=== PATIENT | female | born 1985 | race Caucasian/White ===

== ENCOUNTER 2020-04-13 18:28 | Emergency (ER) | payer BC, SELFPAY ==
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
[2020-04-13 18:40] VITALS: BP 143/88; PULSE 95; RESP 18; TEMP 37.1; O2SAT 98
== END 2020-04-13 19:20 | disposition home or self-care (01) ==
PROVIDERS: Emergency Provider Nurse Practitioner; PCP Internal Medicine
DX: T23.171A Burn of first degree of right wrist, initial encounter (principal); X10.2XXA Contact with fats and cooking oils, initial encounter
CPT/HCPCS: 99213; G0463

== ENCOUNTER 2020-04-23 11:07 | Emergency (ER) | payer BC, SELFPAY ==
[2020-04-23 11:14] VITALS: BP 133/80; PULSE 134; RESP 20; TEMP 37.6; O2SAT 99
--- NOTE | 2020-04-23 11:25 | ED.URI ---
HPI - URI/Sore Throat General Chief Complaint: Upper Respiratory Infection Stated Complaint: sore throat Time Seen by Provider: 04/23/20 11:25 Source: patient and RN notes reviewed History of Present Illness HPI Narrative: Patient is a 34-year-old female who presents the urgent care with complaints of a red, swollen sore throat. Patient states that it started yesterday and she woke up this morning with increased pain. Patient denies any use of [id number] medication for her symptoms. States that she thought it was just related to swimming yesterday and may be drinking chlorine . No other acute complaints. Denies any other upper respiratory complaints. Denies of any cough. Patient aware of the plan of care. Related Data Home Medications Medication Instructions Recorded Confirmed sumatriptan succinate 100 mg PO USEASDIRECTD PRN 04/13/20 04/23/20 Allergies Allergy/AdvReac Type Severity Reaction Status Date / Time aspirin Allergy Mild Rash Verified 04/23/20 11:16 bee venom protein (honey bee) Allergy Mild Anaphylactic Verified 04/23/20 11:16 [bees] Shock Penicillins Allergy Mild Rash Verified 04/23/20 11:16 Review of Systems Review of Systems: Narrative: CONSTITUTIONAL: Reports of low-grade fever EYES: Denies visual changes, redness, or discharge. ENT: Reports of sore throat, redness and swelling CARDIOVASCULAR: Denies chest pain, palpitations, or edema. RESPIRATORY: Denies cough or dyspnea. GASTROINTESTINAL: Denies abdominal pain, nausea, vomiting, or diarrhea. GENITOURINARY: Denies dysuria or hematuria. SKIN: Denies rash or itching. MUSCULOSKELETAL: Denies back pain, joint pain, or myalgia. NEUROLOGIC: Denies headache, numbness, or weakness. All other systems reviewed are negative, except as documented in HPI. PMFSH Comments At the time of my signature, I reviewed and agree with the nursing past medical, surgical, social, and family history. There is no relevant family history pertinent to the patient complaint. Exam Narrative: Exam Narrative: GENERAL: This is a well-nourished, well-developed patient, in no apparent distress. HEAD: normocephalic, atraumatic. EYES: PERRL. Sclera clear/white. Vision is grossly intact. EARS: External ears normal, auditory canals clear and without drainage, TMs normal without perforation. Hearing grossly intact. NOSE: External nose normal with no obvious nasal discharge, nares without redness, no rhinorrhea. THROAT: Mucous membranes moist, moderate erythema noted posterior oropharynx with moderate postnasal drainage and mild bilateral tonsillar edema without exudate NECK: Neck supple, mild nontender bilateral submandibular lymphadenopathy RESPIRATORY: Clear to auscultation. Breath sounds equal bilaterally. No wheezes, rales, or rhonchi. SKIN: warm, intact with no suspicious lesions or rash, good texture and turgor. NEURO: awake, alert, and oriented to person, place and time. There were no obvious focal neurologic abnormalities. EXTREMITIES: No clubbing, cyanosis, or edema. Course Vital Signs Vital signs: Vital Signs Temperature 99.7 F H 04/23/20 11:14 Pulse Rate 134 H 04/23/20 11:14 Respiratory Rate 04/23/20 11:14 Blood Pressure 133/80 04/23/20 11:14 Pulse Oximetry 99 04/23/20 11:14 Temperature 99.7 F H 04/23/20 11:14 Pulse Rate 134 H 04/23/20 11:14 Respiratory Rate 04/23/20 11:14 Blood Pressure 133/80 04/23/20 11:14 Pulse Oximetry 99 04/23/20 11:14 Reviewed MDM - URI/Sore Throat MDM Narrative Medical decision making narrative: Reviewed lab results with the patient. She is aware that strep swab was negative. We will culture the swab and you may call within 72 hours to check on the culture results. We do not call for negatives and considering you will be treated for tonsillitis, which will cover strep, we typically will not call for the positive either. Complete steroid regimen for swelling as prescribed. May use Benadryl in additi
== END 2020-04-23 11:42 | disposition home or self-care (01) ==
PROVIDERS: Emergency Provider Nurse Practitioner Family; PCP Internal Medicine
DX: J03.80 Acute tonsillitis due to other specified organisms (principal); B96.89 Other specified bacterial agents as the cause of diseases classified elsewhere
CPT/HCPCS: 87081; 87880; 99213; G0463

== ENCOUNTER 2020-12-12 10:54 | Emergency (ER) | payer OTHER, SELFPAY ==
[2020-12-12 11:10] VITALS: BP 150/98; PULSE 108; RESP 20; TEMP 36.6; O2SAT 97
--- NOTE | 2020-12-12 11:25 | ED.EXTPRO ---
HPI - Extremity Problem General Stated complaint: R lower leg pain for 3 days Source: patient Mode of arrival: ambulatory Limitations: no limitations History of Present Illness HPI Narrative: IS THAT SINCE 34-YEAR-OLD FEMALE PRESENTS WITH LEFT KNEE PAIN patient is postop day 5 for meniscal tear surgery and has been over exerting her right leg causing pain and tenderness in her knee with a cramping sensation. There is no calf pain there is no calf swelling no redness no erythema no shortness of breath no fever chills. The patient was given Vicodin for postop pain which she took just 2 pills and has not taken any further for her pain. Complaint: extremity pain Onset (ago): day(s) Pain Consistency: intermittent Location: right Severity scale (1-10): 6 Quality: aching Radiation: none Relieving factors: immobilization and elevation Exacerbating factors: weight bearing, walking and exertion Associated symptoms: denies other symptoms Related Data Home Medications Medication Instructions Recorded Confirmed sumatriptan succinate 100 mg PO USEASDIRECTD PRN 04/13/20 12/12/20 hydrocodone-acetaminophen 1 tablet PO DIRECTED 12/12/20 12/12/20 Allergies Allergy/AdvReac Type Severity Reaction Status Date / Time aspirin Allergy Mild Rash Verified 04/23/20 11:16 bee venom protein (honey bee) Allergy Mild Anaphylactic Verified 04/23/20 11:16 [bees] Shock Penicillins Allergy Mild Rash Verified 04/23/20 11:16 Review of Systems Review of Systems: All systems reviewed & are unremarkable except as noted in HPI and below PMFSH Past Medical History Medical History Knee pain Exam Const: General: no acute distress Orientation/consciousness: patient oriented x3 HENMT: Head: normal to inspection Eyes: Conjunctivae: conjunctivae normal Pupils: Equal, round and reactive pupils present Neck: Neck: normal visual inspection and no lymphadenopathy Chest: Chest palpation & inspection: normal inspection of the chest Resp: Effort & Inspection: normal respiratory effort Auscultation: clear to auscultation bilaterally Cardio: Rate: regular rate Rhythm: regular rhythm GI: GI Palp: Yes Soft to palpation Percussion: Yes normal to percussion : General: Yes no CVA tenderness Skin: General skin exam: normal color Rashes: no rashes Neuro: General: patient oriented x3 and moves all extremities Extrem: Other: status post surgery for meniscal tear knee is swollen and tender, there is no calf pain elicited with palpation no calf swelling no redness or erythema Psych: Mental Status: mental status grossly normal Course Course Emergency Course: advised patient to take her medicine as prescribed follow-up with her surgeon, I gave her a dose of IM Toradol and advised to take Motrin for pain and inflammation and continue her Vicodin as needed. Critical Care Time Critical Care Time Critical Care Time: No Discharge Plan Discharge Clinical Impression: Knee pain Qualifiers: Chronicity: acute Laterality: right Qualified Code(s): M25.561 - Pain in right knee Patient Disposition: Home, Self-Care Condition: Stable Instructions: Antibiotic Form, Knee Pain (ED), Knee Sprain (ED) Additional Instructions: Take Motrin [id number] twice daily with meals, use Vicodin as needed and follow-up primary care physician as soon as possible for further evaluation and treatment. Prescriptions: No Action hydrocodone-acetaminophen 5-325 mg tablet 1 tablet PO DIRECTED RF: 0 sumatriptan succinate 100 mg tablet 100 mg PO USEASDIRECTD PRN (Reason: headache) RF: 0 Follow-up/Referrals: [place],MD Gilmer [Primary Care Provider] - Time of Disposition: 11:31
[2020-12-12] MEDS: KETOROLAC (*BKC) 60 MG/2 ML VIAL IM (11:33)
[2020-12-12 11:34] VITALS: BP 133/86; PULSE 94; RESP 20; TEMP 37.1; O2SAT 97
== END 2020-12-12 11:39 | disposition home or self-care (01) ==
PROVIDERS: Emergency Provider Emergency Medicine; PCP Internal Medicine
DX: M25.561 Pain in right knee (principal)
CPT/HCPCS: 96372; 99283; J1885

== ENCOUNTER 2022-04-24 14:00 | Emergency (ER) | payer OTHER, SELFPAY ==
--- NOTE | ~2022-04-24 | US_ITS ---
EXAMINATION: US OB <=14 wk fetus w TV INDICATION: 11 weeks , bleeding TECHNIQUE: Sonography of the pelvis was performed by transabdominal and transvaginal techniques. COMPARISON: None. RESULT: Uterus: - Orientation: Anteverted Gestation: - Intrauterine gestational sac: Single irregular gestational sac in the lower uterine segment/ cervix. - Embryo: Single present - [employer] rump length: 3.6 cm, corresponding gestational age 10 weeks, 4 days -Gestational heart rate: absent -Subgestational hematoma: Absent Right ovary: - Size : 2.9 x 1.1 x 1.0 cm - Normal sonographic appearance with physiologic follicles. Left ovary: -Not visualized. Pelvis free fluid: None. IMPRESSION: Failed . The irregular gestational sac is positioned in the lower uterine segment/cervical c anal. Reviewed, dictated and finalized at location K. IMPRESSION: Failed . The irregular gestational sac is positioned in the lower uter ine segment/cervical canal.
[2022-04-24 14:14] VITALS: BP 126/84; PULSE 81; RESP 16; TEMP 36.3; O2SAT 100
[2022-04-24] MEDS: MORPHINE SULFATE (*CRX) 2 MG/ML INJ IV PUSH ×2 (14:56→17:11)
[2022-04-24 14:57] VITALS: BP 143/89; PULSE 84; RESP 16; O2SAT 97
--- NOTE | 2022-04-24 14:57 | ED.ABDPAIN ---
HPI - Abdominal Pain General Chief Complaint: Abdominal Pain Stated Complaint: 11weeks , cramping, bleeding x4 days Time Seen by Provider: 04/24/22 14:19 Source: patient Mode of arrival: ambulatory Limitations: no limitations History of Present Illness HPI narrative: This is a 36 year old , about 11 weeks , that presents to the ER for pelvic pain noted over the last couple of days. Associated with vaginal bleeding. Reports the pain is crampy in nature. Reports she has been seen at another ED for this and does have an IUP. She has not had her first OB appointment yet. She is scheduled to see Dr. Ho in 10 days. Denies fever, vomiting, or dysuria. Related Data Home Medications Medication Instructions Recorded Confirmed sumatriptan succinate 100 mg tablet 100 mg PO USEASDIRECTD PRN headache 04/13/20 12/12/20 hydrocodone 5 mg-acetaminophen 325 1 tablet PO DIRECTED 12/12/20 12/12/20 mg tablet Allergies Allergy/AdvReac Type Severity Reaction Status Date / Time aspirin Allergy Mild Rash Verified 04/23/20 11:16 bee venom protein (honey bee) Allergy Mild Anaphylactic Verified 04/23/20 11:16 [bees] Shock Penicillins Allergy Mild Rash Verified 04/23/20 11:16 Review of Systems Review of Systems: CONSTITUTIONAL: Denies fever GASTROINTESTINAL: Reports abdominal pain. Denies nausea, vomiting, or diarrhea. GENITOURINARY: Denies dysuria All systems reviewed & are unremarkable except as noted in HPI and below PMFSH Past Medical History Medical History (Updated 04/24/22 @ 17:48 by Zulema Armando PA-C) History of migraine Knee pain Social History Social History (Updated 04/24/22 @ 15:12 by Zulema Armando PA-C) Substance use: never Exam Narrative: GENERAL: Well-appearing, well-nourished, and in mild acute distress due to pain. HEAD: Normocephalic, atraumatic. EYES: EOMI. CHEST: Clear to auscultation. No respiratory distress. No wheezes rales or rhonchi HEART: Regular rate and rhythm. No murmur heard. Normal peripheral pulses. ABDOMEN: Soft, nondistended, normal active bowel sounds. Tender to palpation throughout the lower abdomen, without guarding. No CVA tenderness EXTREMITIES: Normal range of motion. No edema. SKIN: Warm, dry, no rash. NEURO: No focal deficits. Alert and oriented x3. PSYCH: Normal mood and affect Procedures Other Procedure Procedure 1: Other Procedure: Products of conception removed from the vaginal vault using ring forceps. Sent for pathology Course Vital Signs Vital signs: Vital Signs Temperature 97.3 F L 04/24/22 14:14 Pulse Rate 81 04/24/22 14:14 Respiratory Rate 16 04/24/22 14:14 Blood Pressure 126/84 04/24/22 14:14 Pulse Oximetry 100 04/24/22 14:14 Oxygen Delivery Room Air 04/24/22 14:14 Temperature 97.3 F L 04/24/22 14:14 Pulse Rate 84 04/24/22 14:57 Respiratory Rate 16 04/24/22 14:57 Blood Pressure 143/89 H 04/24/22 14:57 Pulse Oximetry 97 04/24/22 14:57 Oxygen Delivery Room Air 04/24/22 14:14 MDM - Abdominal Pain MDM Narrative Medical decision making narrative: Patient presents to the emergency department for vaginal bleeding, about 11 weeks . She is afebrile and nontoxic-appearing. Her vitals are stable. CBC with mild leukocytosis to 14.8. Hemoglobin is normal. Metabolic panel without concerning findings. Lactic acid initially elevated, this normalized with IV fluid administration. Patient is a be positive. Obstetrics ultrasound shows a failed . There are irregular gestational sac is positioned in the lower uterine segment/cervical canal. Patient was updated on case findings. Products of conception removed from the vaginal vault using ring forceps. Sent for pathology. Spoke with Dr. Robles about patient and workup, OB environmental officer. Patient is stable and felt appropriate for further outpatient evaluation. She does report she has an appointment with [facility]'s center in
[2022-04-24 15:24] LABS: Basophils Percent Auto 0.1 % (0.2-1.2); Eosinophils Percent Auto 0.1 % (0-4.4); Hematocrit 38.5 % (37.0-47.0); Hemoglobin 12.9 g/dL (12.0-15.0); Immature Granulocyte Absolute 0.06 K/mm3 (0.00-0.031); Immature Granulocyte Percent A 0.4 % (0-0.5); Lymphocytes Absolute Auto 1.93 K/mm3 (0.9-3.2); Mean Corpuscular HGB Conc 33.5 g/dl (32-36); Mean Corpuscular Hemoglobin 28.4 pg (26-34); Mean Corpuscular Volume 84.8 fl (80-100); Mean Platelet Volume 11.5 fl (7.4-10.4); Monocytes Absolute Auto 0.7 K/mm3 (0.1-0.6); Monocytes Percent Auto 4.5 % (2.6-8.5); Neutrophils Absolute Auto 12.1 K/mm3 (1.3-6.7); Neutrophils Percent Auto 81.9 % (45.5-73.1); Platelet Count Result 196 k/mm3 (150-375); Red Blood Count 4.54 M/mm3 (4.2-5.4); Red Cell Distribution Width 13.2 % (11.5-14.5); White Blood Count 14.8 K/mm3 (4.5-10.0)
[2022-04-24 15:35] LABS: Alanine Aminotransferase 28 U/L (6-35); Albumin Level 4.4 g/dL (3.5-5.1); Alkaline Phosphatase 84 U/L (38-126); Anion Gap 11 mmol/L (8-16); Aspartate Amino Transferase 24 U/L (14-36); Bilirubin,Total 0.4 mg/dL (0.2-1.3); Blood Urea Nitrogen 14 mg/dL (7-17); Calcium 9.6 mg/dL (8.4-10.2); Carbon Dioxide 17 mmol/L (22-30); Chloride 110 mmol/L (98-107); Estimated CRCL calculation 127 ml/min; Estimated Glomerular Filt Rate > 60; Glucose 98 mg/dL (65-110); Lactic Acid Reflex 2.2 mmol/L (0.7-2.0); Potassium 3.5 mmol/L (3.4-5.0); Sodium 138 mmol/L (137-145)
[2022-04-24 16:40] VITALS: BP 142/86; PULSE 90; RESP 16; O2SAT 97
[2022-04-24] MEDS: SODIUM CHLORIDE 0.9% IV 1,000 ML 999 ML IV CONT (17:11)
[2022-04-24 18:01] LABS: Lactic Acid Reflex 0.7 mmol/L (0.7-2.0)
[2022-04-24 18:05] LABS: Appearance Urine Clear (Clear); Bilirubin Urine 1+ (Negative); Blood Urine 3+ (Negative); Color Urine Yellow (Yellow); Glucose Urine UA Negative (Negative); Ketones Urine 4+ mg/dL (Negative); Leukocyte Esterase Ur Negative LEU/UL (Negative); Nitrate Urine Negative (Negative); Protein Urine Trace mg/dL (Negative)
[2022-04-24 18:09] LABS: Mucus Urine Few /lpf; Squamous Epithelial Cell Urine Few /hpf (Few)
[2022-04-24 18:12] LABS: Add Urine Microscopic? YES
[2022-04-24 18:22] LABS: Reflex Lactic Acid Yes or No Add Lactic
[2022-04-24 18:48] VITALS: BP 134/84; PULSE 86; RESP 16; O2SAT 98
== END 2022-04-24 18:49 | disposition home or self-care (01) ==
PROVIDERS: Physician Assistant; Emergency Provider Emergency Medicine; PCP Internal Medicine
DX: O02.1 Missed abortion (principal)
CPT/HCPCS: 36415; 76801; 76817; 80053; 81001; 83605; 84702; 85025; 85461; 88305; 96374; 96376; 99284; J2270; J7030

== ENCOUNTER 2024-02-19 07:45 | Outpatient (CLI) | payer OTHER, SELFPAY | END 2024-02-19 07:46 | disposition home or self-care (01) | LOC: ANHSURGERY 07:49 | PROVIDERS: PCP Internal Medicine; Visit Provider Obstetrics & Gynecology | DX: Z01.818 Encounter for other preprocedural examination (principal); N93.9 Abnormal uterine and vaginal bleeding, unspecified | CPT/HCPCS: 36415; 86850; 86900; 86901 ==

== ENCOUNTER 2024-02-20 01:24 | Day surgery (SDC) | payer OTHER, SELFPAY ==
[2024-02-08 14:23] VITALS: BMI 31.7
--- NOTE | 2024-02-08 14:29 | PC.NURSE ---
Report to the Outpatient Waiting Room, entrance under the green pavilion located off [facility], at time 6:00 on date 02/20/24. Planned Procedure Time: 7:30. Time changes happen often and if your time is changed the preop area will call you the afternoon before. - You and your visitor will be asked to self-screen and do not enter if you have any COVID symptoms. - A mask is optional within the hospital at this time. Patients may have clear liquids (water, carbonated beverages, clear teas, apple juice) until 3 hours prior to surgery (4:30) with a maximum of 20 ounces. - No food from midnight until time of surgery Take the following medications with a SIP of water the morning of surgery: NONE DO NOT STOP ANY OF YOUR OTHER PRESCRIPTION MEDICATIONS PRIOR TO SURGERY ?EXCEPT THE FOLLOWING Medications to discontinue per physician: N/A Date to take last dose: N/A Please no make-up, nail sinhala, hairspray, perfume, deodorant, or body powder the day of surgery. No jewelry (including any body piercings) or valuables the day of surgery, leave them at home. Please take a shower or bath the night before, or the morning of, surgery with an antibacterial soap. Wear comfortable, loose fitting clothing. - Jewelry must be removed prior to entering the operating room. Rings and piercings that are not removed may be cut off. - The hospital will not accept responsibility for valuables. - Please leave all valuables, including medications, at home the day of surgery. If you are going home after surgery, a licensed cement mixer driver must drive you home. - NO public transportation without another adult if you receive anesthesia. - We recommend that an adult stay with you for 24 hours following discharge. - We also recommend that you do not drive, make important decision, drink alcoholic beverages, or take any drugs that were not prescribed by your health care provider for at least 24 hours after your discharge time. Follow any additional instructions given to you from your surgeon. If you or anyone in your household have experienced Covid symptoms in the past week, please notify your surgeon or the nurse liaison at the phone number below for possible testing. Telephone instructions given to PT Karan OSULLIVAN and asked if any additional questions and then verbalized understanding. Patient advised to call surgeon office or pre surgery nurse liaison [phone] if any additional questions.
[2024-02-20] VITALS (9 sets, daily range): BP systolic 105–146; BP diastolic 63–98; PULSE 65–80; RESP 14–18; TEMP 36.1–37.5; O2SAT 94–100
[2024-02-20] MEDS: ACETAMINOPHEN 500 MG TABLET 1000 MG PO (06:17)
[2024-02-20] MEDS: LACTATED RINGERS 1,000 ML 30 ML IV CONT ×2 (06:51→09:12)
--- NOTE | 2024-02-20 07:06 | P.PNAN_ITS ---
Anes - Initial Pre Proc Eval Procedure: Operation Date: 02/20/24 07:30 Proposed Procedures p Total Laparoscopic Hysterectomy with Bilateral Salpingectomy - Juan David Pichardo MD Date/Time: 02/20/24 07:06 Surgeon: Juan David Pichardo MD Pre Op Diagnosis: Abnormal Uterine Bleeding Patient Data Age: 38 Gender: F Height: 1.75 m Weight: 95.4 kg Last Vital Signs Temp 97.9 F 02/20/24 06:26 Pulse 80 02/20/24 06:26 Resp 16 02/20/24 06:26 BP 146/98 H 02/20/24 06:26 Pulse Ox 99 02/20/24 06:26 O2 Del Method Room Air 02/20/24 06:26 Allergies Allergy/AdvReac Type Severity Reaction Status Date / Time aspirin Allergy Mild Rash Verified 02/20/24 06:10 bee venom protein (honey bee) Allergy Mild Anaphylactic Verified 02/20/24 06:10 [bees] Shock Penicillins Allergy Mild Rash Verified 02/20/24 06:10 Home Medications Medication Instructions Recorded Confirmed Type sumatriptan succinate 100 mg tablet 100 mg PO USEASDIRECTD PRN headache 04/13/20 02/08/24 History Patient hx anesthesia problems: none Family hx anesthesia problems: none Results Review: All pre-operative results and documents have been reviewed as part of the pre- operative evaluation. [facility] Past Medical History Medical History (Updated 04/25/22 @ 00:00 by Portillo Golden) History of migraine Knee pain Social History Social History (Updated 04/24/22 @ 15:12 by Zulema Armando PA-C) Smoking packs per day: 0.5 Smoking cigarettes per day: 10.0 Years smoked: 20 Smoking pack-years: 10.00 Smoking status: Current every day smoker Tobacco type: cigarettes Alcohol intake: never Substance use: never Substance use type: does not use Living arrangements: alone Spiritual care concerns: No Anes - Eval Final PreProcedure Day of Procedure 02/20/24 07:06 Patient weight: obese Heart: regular rate and rhythm Lungs: clear to auscultation Airway: Mallampati scale class II Neurological: alert and oriented Last oral intake: >/= 8 hours ASA classification: III Emergent: no Anesthetic plan: proceed Anesthesia type and monitoring: general ETT and standard monitoring Results Review: All pre-operative results and documents have been reviewed as part of the pre- operative evaluation. Informed Consent: The patient's anesthetic plan and its attendant risks and benefits were discussed with the patient/family/POA. Questions were solicited and answers provided to the satisfaction of the patient/family/POA.
--- NOTE | 2024-02-20 07:17 | PM.IMHP ---
H&P: HPI History of Present Illness Date/Time: 02/20/24 07:17 Chief Complaint: Abnormal uterine bleeding Narrative: 38-year-old female abnormal uterine bleeding who presents for total laparoscopic hysterectomy bilateral salpingectomy. She understands the procedure. Has been explained to her in detail. She understands risks. She understands injuries may occur that result in hospitalization, more surgery, and severe illness she understands risk of hemorrhage infection. She denies any nausea, vomiting, fever, chills. She denies any chest pain shortness of breath. Review of Systems Review of Systems: All systems reviewed & are unremarkable except as noted in HPI and below Constitutional: Constitutional: Denies chills, Denies fatigue, Denies fever(s) and Denies weakness Eyes: Eyes: Denies blurry vision, Denies change in vision, Denies loss of peripheral vision, Denies loss of vision, Denies other visual disturbances and Denies eye pain ENT: Denies vertigo, Denies dizziness, Denies hearing loss, Denies mouth pain, Denies nasal obstruction, Denies neck mass and Denies neck pain Cardiovascular: Cardiovascular: Denies chest pain, Denies diaphoresis, Denies syncope, Denies leg edema and Denies dyspnea Respiratory: Respiratory: Denies chest congestion, Denies cough, Denies hemoptysis, Denies dyspnea and Denies wheezing Gastrointestinal: Gastrointestinal: Denies abdominal pain, Denies constipation, Denies diarrhea, Denies nausea and Denies vomiting Genitourinary: Genitourinary: Denies hematuria, Denies change in libido, Denies nocturia, Denies genital lesions, Denies flank pain and Denies urinary urgency Musculoskeletal: Musculoskeletal: Denies abnormal gait, Denies back pain, Denies myalgias, Denies arthralgias, Denies joint swelling, Denies muscle weakness and Denies neck pain Integumentary/Breasts: Skin/Breast: Denies swelling, Denies breast pain, Denies breast mass, Denies dry skin, Denies nipple discharge, Denies unusual bruising and Denies jaundice Neurologic: Denies Neuro-related abnormal movements, Denies Abnormal speech present, Denies abnormal gait, Denies behavioral changes, Denies confusion, Denies vertigo, Denies dizziness, Denies syncope, Denies loss of vision, Denies memory loss, Denies convulsions and Denies weakness Psychiatric: Psychiatric: Denies abnormal sleep pattern, Denies behavioral changes, Denies change in libido, Denies confusion, Denies depression, Denies anhedonia and Denies memory loss Endocrine: Endocrine: Reports no additional endocrine complaints, Denies change in libido and Denies fatigue Hematologic/Lymphatic: Hematologic/Lymphatic: Reports no additional hematologic/lymphatic complaints Allergic/Immunologic: Allergic/Immunologic: Reports no additional allergic/immunologic complaints and Denies wheezing PMFSH Past Medical History Medical History (Updated 02/20/24 @ 07:20 by Juan David Pichardo MD) History of migraine Knee pain Social History Social History (Updated 04/24/22 @ 15:12 by Zulema Armando PA-C) Smoking packs per day: 0.5 Smoking cigarettes per day: 10.0 Years smoked: 20 Smoking pack-years: 10.00 Smoking status: Current every day smoker Tobacco type: cigarettes Alcohol intake: never Substance use: never Substance use type: does not use Living arrangements: alone Spiritual care concerns: No Meds Home Medications and Allergies Home Medications Medication Instructions Recorded Confirmed Type sumatriptan succinate 100 mg tablet 100 mg PO USEASDIRECTD PRN headache 04/13/20 02/08/24 History Allergies Allergy/AdvReac Type Severity Reaction Status Date / Time aspirin Allergy Mild Rash Verified 02/20/24 06:10 bee venom protein (honey bee) Allergy Mild Anaphylactic Verified 02/20/24 06:10 [bees] Shock Penicillins Allergy Mild Rash Verified 02/20/24 06:10 Vital Signs Vital Signs - 24 hr 02/20/24 06:26 Temperature 97.9 F Pulse Rate 80 Respirato
--- NOTE | 2024-02-20 07:20 | WPDHPUPDATE1 ---
History and Physical Update Update Date/Time: 02/20/24 07:20 History and Physical has been reviewed, including an updated exam of the patient. There are NO changes in the patient's condition. Risks, benefits, and alternatives have been discussed and questions answered. Patient agrees to proceed with procedure.
[2024-02-20] MEDS: ceFAZolin 2 GM/D5W 50 ML 2 GM/50 ML BAG IVPB (07:37)
[2024-02-20] MEDS: ceFAZolin SODIUM 1 GM VIAL (09:01)
[2024-02-20] MEDS: METHYLENE BLUE 0.5% INJ 10 ML AMPULE 20 ML IRRIGATION (09:02)
--- NOTE | 2024-02-20 09:10 | W.PM.PROC2 ---
Procedure Note - Detailed Date of Procedure 02/20/24 Pre-op Diagnosis Abnormal Uterine Bleeding Post-op Diagnosis Same Procedure Performed Total laparoscopic hysterectomy. Surgeon Juan David Pichardo MD Anesthesia General Description of Procedure This patient was taken to the operating room. She was prepped and draped in the dorsal lithotomy position after induction of general anesthesia. The uterine manipulator and Carlos cup were placed. This was done with a speculum and tenaculum. The speculum was placed. The cervix was grasped with a tenaculum. The stay sutures were placed at 3 and 9:00 a.m.. The stay sutures of 0 Vicryl were brought through the appropriately sized Carlos cup. The tip of the GRABIEL manipulator was placed in the intrauterine cavity. The cup was slid into place around the cervix and into the fornices. It was locked into place. The sutures were then wrapped around the handle and tied under tension. A 5 mm skin incision was made in the left upper quadrant the abdomen. A 5 mm trocar was inserted into the intrauterine cavity under direct visualization of the scope. Pneumoperitoneum was achieved. A left lower quadrant 11 mm incision was made with scalpel. An 11 mm trocar was inserted into the anterior abdominal cavity under direct visualization the scope. A 5 mm infraumbilical incision was made with a scalpel and a 5 mm trocar was inserted the intra-abdominal cavity under direct visualization of the scope. Bilateral ureteral lysis was performed. This was done from the pelvic brim down to the uterine artery. This was done with careful dissection using sharp and blunt dissection. The fallopian tubes were removed bilaterally. The mesosalpinx around the fallopian tubes were cauterized transected with LigaSure cautery. This was done in a bilateral fashion from the ovary to the uterine cornua. The fallopian tube was transected at the uterine cornu and amputated bilaterally. The tube was taken out the left lower quadrant trocar site. In a stepwise fashion along the lateral aspects of the uterus the round ligament and broad ligaments were cauterized transected down to the level of the uterine arteries. A bladder flap was created in the bladder was moved distally to the end of the cervix and over the Carlos cup. The bilateral uterine arteries were cauterized and transected. Colpotomy was then performed. In a circumferential fashion the vagina was transected using unipolar cautery. The incision was made down on the Carlos cup. when the colpotomy was completed, the uterus and cervix were taken out through the vagina. A pneumo occluder was placed in the vagina. The vaginal cuff was closed with a 0 V lock suture in a running fashion. The pelvis was irrigated with copious amounts antibiotic irrigation. The ureters were again examined and found to be intact and flowing freely under the uterine arteries into the bladder. The bladder was intact. It was examined directly. Cystoscopy was performed after administration of methylene blue. The cystoscope was inserted. Bladder was distended with fluid. The ureteric meatus was observed bilaterally. Blue fluid was seen to egress bilaterally. The bladder was drained and the cystoscope was withdrawn. The vagina was irrigated with Betadine solution after removal of the Pneumo occluder. The patient was taken to recovery room. She was stable condition. Sponge lap and needle counts were correct x2. Drains Yes Packing No Pathology Yes Complications No immediate complications Condition Stable Disposition Floor
[2024-02-20] MEDS: fentaNYL CITRATE INJ (*CRX) 100 MCG/2 ML VIAL 25 MCG IV PUSH ×4 (09:24→10:06)
--- NOTE | 2024-02-20 10:23 | PC.NURSE ---
This patient, Danette De Anda, was received from PACU on 02/20/24 at 1023. Patient/family oriented to unit policies and routines
[2024-02-20] MEDS: DEXTROSE 5%/0.45% SOD CHL 1,000 ML 125 ML IV CONT (10:46)
[2024-02-20] MEDS: KETOROLAC 30 MG/ML VIAL (*BKC) IV PUSH (12:44)
[2024-02-20] MEDS: SIMETHICONE 80 MG TAB.CHEW PO ×2 (12:44→20:54)
[2024-02-20] MEDS: SUMAtriptan SUCCINATE 25 MG TABLET 100 MG PO (15:11)
[2024-02-20] MEDS: HYDROcodone/acetaminophen (*CRX) 5-325 MG TABLET 1 TAB PO (17:29)
[2024-02-20] MEDS: IBUPROFEN 600 MG TABLET PO (20:54)
[2024-02-20] MEDS: HYDROcodone/acetaminophen (*CRX) 10-325 MG TABLET 1 TAB PO (20:55)
[2024-02-21 00:10] VITALS: BP 118/84; PULSE 95; RESP 18; TEMP 37.2; O2SAT 100
[2024-02-21 02:05] VITALS: TEMP 37.1
[2024-02-21] MEDS: HYDROcodone/acetaminophen (*CRX) 10-325 MG TABLET 1 TAB PO (02:05)
[2024-02-21] MEDS: IBUPROFEN 600 MG TABLET PO (02:05)
[2024-02-21 04:19] VITALS: BP 126/70; PULSE 100; RESP 18; TEMP 37.3; O2SAT 99
--- NOTE | 2024-02-21 07:30 | WPDANESPN ---
Anes - Prog Note Post-Op Date/Time: 02/21/24 07:30 Cardiovascular status: normal Respiratory status: normal Airway patency: baseline Mental status: baseline Post-Op hydration status: normal Vital Signs: Last Vital Signs Temp 99.1 F 02/21/24 04:19 Pulse 100 02/21/24 04:19 Resp 18 02/21/24 04:19 BP 126/70 02/21/24 04:19 Pulse Ox 99 02/21/24 04:19 O2 Del Method Room Air 02/20/24 10:10 O2 Flow Rate 6 02/20/24 09:40 Pain Score (VAS): 0/10 I/O: Intake & Output 02/20/24 02/20/24 02/21/24 15:59 23:59 07:59 Intake Total 1000 480 Output Total 180 927 600 Balance 367 -532 -351 Post-procedural complaints: none Patient Feedback: Patient satisfied with anesthetic care.
[2024-02-21 07:58] VITALS: BP 133/50; PULSE 73; RESP 18; TEMP 36.2; O2SAT 98
[2024-02-21] MEDS: SIMETHICONE 80 MG TAB.CHEW PO (08:15)
--- NOTE | 2024-02-21 09:40 | PC.NURSE ---
On 02/21/24, the student, Tracy Earl, provided care and completed [facility] documentation on this patient. I have reviewed the student's documentation and agree with the findings.
--- NOTE | 2024-02-21 09:41 | PM.GYNPNOP ---
PARACHUTE HARNESS RIGGER - A/P Postoperative Procedures: Procedures Operation Date: 02/20/24 07:30 Actual Procedure Side Surgeon p Total Laparoscopic Hysterectomy with Bilateral Salpingectomy Bilateral RRodolfo Pichardo MD Postoperative day: 1 Postoperative status: doing well Postoperative plan: see orders Time Spent With Patient Time: Total time spent is greater than 50% in coordination of care (as documented) at patient's floor/unit and/or counseling patient: Time with patient: 15 - 25 minutes PARACHUTE HARNESS RIGGER- PN:Subj Post-Op Subjective Date/time seen: 02/21/24 09:41 Subjective: patient reports feeling better, patient has no complaints and pain is well controlled Exam Const: General: healthy appearing, comfortable and no acute distress Resp: Auscultation: clear to auscultation bilaterally, no rales, no rhonchi and no wheezes Cardio: Rate: regular rate Heart sounds: no click, no murmurs and no rubs GI: Inspection: non-distended Auscultation: normal bowel sounds Extrem: General: normal to inspection, no pedal edema and no calf tenderness PARACHUTE HARNESS RIGGER - PN: Obj Data Vital Signs Vital Signs: Vital Signs - 24 hr 02/20/24 09:55 02/20/24 10:10 02/20/24 10:30 Temperature 97.3 F L Pulse Rate 66 66 65 Respiratory Rate 16 14 16 Blood Pressure 118/76 121/76 115/71 Pulse Oximetry 100 94 99 Oxygen Delivery Room Air Room Air 02/20/24 16:15 02/20/24 20:45 02/21/24 02:05 Temperature 98.5 F 99.5 F 98.7 F Pulse Rate 73 75 Respiratory Rate 18 16 Blood Pressure 117/68 135/92 H Pulse Oximetry 98 100 Oxygen Delivery 02/21/24 00:10 02/21/24 04:19 02/21/24 07:58 Temperature 99 F 99.1 F 97.2 F L Pulse Rate 95 100 73 Respiratory Rate 18 18 18 Blood Pressure 118/84 126/70 133/50 L Pulse Oximetry 100 99 98 Oxygen Delivery Intake/Output Intake/Output: Intake & Output 02/18/24 02/19/24 02/20/24 02/21/24 23:59 23:59 23:59 23:59 Intake Total 1530 Output Total 1105 600 Balance 425 -600 Meds/Results Medications: Active Medications Generic Name Dose Route Start Last Admin Trade Name Freq PRN Reason Stop Dose Admin Hydrocodone Bitart/Acetaminophen 1 tab 02/20/24 10:16 02/20/24 17:29 Hydrocodone/Acetaminophen (*Crx) 5-325 Mg Tablet PO 1 tab Q3H PRN Administration Pain Rated 5 or Less Hydrocodone Bitart/Acetaminophen 1 tab 02/20/24 10:16 02/21/24 02:05 Hydrocodone/Acetaminophen (*Crx) 10-325 Mg Tablet PO 1 tab Q3H PRN Administration Pain Rated 6 or Greater Ibuprofen 600 mg 02/20/24 10:16 02/21/24 02:05 Ibuprofen 600 Mg Tablet PO 600 mg Q6H PRN Administration Cramping Simethicone 80 mg 02/20/24 12:00 02/21/24 08:15 Simethicone 80 Mg Tab.Chew PO 80 mg TIDWM BRITTNEE Administration Sumatriptan Succinate 100 mg 02/20/24 10:16 02/20/24 15:11 Sumatriptan Succinate 25 Mg Tablet PO 100 mg Q2H PRN Administration headache
== END 2024-02-21 11:05 | disposition home or self-care (01) ==
LOC: ANHSURGERY 06:02 → ANHOB2 10:18
PROVIDERS: PCP Internal Medicine; Visit Provider Obstetrics & Gynecology
PROC: 0UT9FZZ Resection of Uterus, Via Natural or Artificial Opening With Percutaneous Endoscopic Assistance (ICD-10-PCS; CPT 58571; principal; 2024-02-20 07:30)
DX: N93.9 Abnormal uterine and vaginal bleeding, unspecified (principal); N88.0 Leukoplakia of cervix uteri; F17.210 Nicotine dependence, cigarettes, uncomplicated; E66.9 Obesity, unspecified; Z68.31 Body mass index [BMI] 31.0-31.9, adult
CPT/HCPCS: 58571; 36415; 86850; 86900; 86901; 88307; 99199; A9270; J0690; J1100; J1170; J1200; J1885; J2250; J2405; J2704; J3010; J7030; J7120; Q9968

== ENCOUNTER 2024-04-19 11:14 | Outpatient (CLI) | payer OTHER, SELFPAY ==
--- NOTE | ~2024-04-19 | CT_ITS ---
EXAMINATION: CT abdomen pelvis w con DATE: 04/19/2024 11:41 INDICATION: Abnormal uterine bleeding TECHNIQUE: Computed tomography (CT) of the abdomen and pelvis was performed with 100 mL Omnipaque-350 intravenous contrast. Automated exposure control and iterative reconstruction technique were employe d. The dose-length product was 785.88 mGy-cm. COMPARISON: 11/05/2016 FINDINGS: Lung bases are clear. Heart size is normal. No pericardial or pleural effusion. A few small fat atten uation gallstones within the normal gallbladder with no dilation, wall thickening or pericholecystic inflammatory stranding to suggest acute cholecystitis. No intra or extrahepatic biliary ductal dilati on with normal caliber common bile duct measuring 5 mm in maximal diameter. Liver, spleen, pancreas, bilateral adrenal glands and right kidney are normal. There are couple nonobstructing stones measurin g 2 mm and 4 mm at a lower pole calyx of the left kidney. Bowels including the appendix are normal. T he uterus is not identified and has likely been surgically resected. Bilateral adnexa are unremarkabl e. Bladder is decompressed which limits evaluation. There does however appear to be mucosal hyperemia and mild stranding to the fat surrounding the bladder suspicious for cystitis. No free intraperitone al gas or fluid. No pathologically enlarged abdominal or pelvic lymphadenopathy. Chronic mild T8 comp ression fracture. There is mild to moderate spondylosis in the lower thoracic spine as well as at the lumbosacral junction. Bone island at the right femoral neck. IMPRESSION: 1. Bladder mucosal hyperemia surrounding fat stranding suspicious for cystitis. Correlate with urinal ysis. 2. Status post hysterectomy. 3. Cholelithiasis. Reviewed, dictated and finalized at location A. IMPRESSION: 1. Bladder mucosal hyperemia surrounding fat stranding suspicious for cystitis. Correlate with urinalysis. 2. Status post hysterectomy. 3. Cholelithiasis.
[2024-04-19 11:36] LABS: Estimated Glomerular Filt Rate 55
== END 2024-04-19 11:15 | disposition home or self-care (01) ==
PROVIDERS: PCP Internal Medicine; Visit Provider Obstetrics & Gynecology
DX: N93.9 Abnormal uterine and vaginal bleeding, unspecified (principal); K80.20 Calculus of gallbladder without cholecystitis without obstruction; Z90.49 Acquired absence of other specified parts of digestive tract
CPT/HCPCS: 74177; Q9967

== ENCOUNTER 2025-08-20 16:51 | Outpatient (CLI) | payer OTHER, SELFPAY ==
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
--- OUTSIDE RECORDS SUMMARY | 2025-08-20 17:53 | XMS_ITS | Clinical Summary ---
Author Organization [facility] Address [address] [place] [address] Phone Care Team Providers Care Loss Prevention Lead Name Role Phone Gilmer Garibay MD Primary Care Provider [phone] Social History Tobacco Use Types Packs/Day Years Used Date Smoking Tobacco: Never Assessed Comments Unknown Sex and Gender Information Value Date Recorded Sex Assigned at Not on file Legal Sex Female 12:46 PM CDT Gender Identity Not on file Sexual Orientation Not on file Plan of Treatment Health Maintenance Due Date Last Done Comments Hepatitis C Virus (HCV) Screening 1983 Hepatitis B Immunization (1 of 3 - 19+ 3-dose series) 2002 Pap Smear 2004 Human Papillomavirus (HPV) Immunization (1 - 3-dose SCDM series) 2010 Cervical Cancer Screening (CCS) 2013 HPV/Cotest 2013 Influenza Immunization (#1) 2025 SARS-COV-2 Immunization ( season) 2025 09/21/2021, 08/31/2021 Respiratory Syncytial Virus (RSV) Immunization (Adult) (1 - 1-dose 75+ series) 2058 DTaP/Tdap/Td Immunization Discontinued 2012, 04/28/1998, 06/19/1989, Additional history exists TdaP Immunization Completed 07/04/2013 Meningococcal Immunization (ACWY) Aged Out No longer eligible based on patient's age to complete this topic Pneumococcal Immunization Combined Aged Out No longer eligible based on patient's age to complete this topic Rotavirus Immunization Aged Out No lo nger eligible based on patient's age to complete this topic Care Teams Loss Prevention Lead Relationship Specialty Start Date End Date Gilmer Garibay MD [address] [place] [id number] PCP - General Internal Medicine 06/23/20
--- OUTSIDE RECORDS SUMMARY | 2025-08-20 17:53 | XMS_ITS | Clinical Summary ---
Author Organization [facility] Address [address] [place] [id number] Care Team Providers Care Buggy Operator Name Role Phone Unavailable Primary Care Provider Unavailabl e Social History Tobacco Use Types Packs/Day Years Used Date Smoking Tobacco: Never Assessed Comments Unknown Sex and Gender Information Value Date Recorded Sex Assigned at Not on file Legal Sex Female 5:55 PM AIRWAY CONTROLLER Gender Identity Not on file Sexual Orientation Not on file Plan of Treatment Health Maintenance Due Date Last Done Comments Cervical Cancer Screening Pa p Smear (Age 30 to 64) Every 3 Years 1983 Annual Physical 1986 Hepatitis C 2001 DTaP, Tdap and Td Vaccines ( 1 - Tdap) 2002 Hepatitis B Vaccines (1 of 3 - 19+ 3-dose series) 2002 HPV Vaccines (1 - 3-dose SCD M series) 2010 Cervical Cancer Screening Pa p with HPV Testing (Age 30 to 64) Every 5 Years 2013 Cervical Cancer Screening with HPV 2013 Mammogram Screening 2023 COVID-19 Vaccine (2023-2 5 season) 2025 Influenza Adult (#1) 2025 Meningococcal B Vaccine Aged Out No l onger eligible based on patient's age to complete this topic Meningococcal Vaccine Aged Out No charly angelita eligible based on patient's age to complete this topic Pneumococcal Vaccine: Pediat rics (0 to 5 Years) and At-Risk Patients (6 to 49 Years) Aged Out No longer eligible b ased on patient's age to complete this topic RSV Immunizations Under 20 Months Aged Out No longer eligible based on patient's age to complete this topic
--- OUTSIDE RECORDS SUMMARY | 2025-08-20 17:53 | XMS_ITS | Clinical Summary ---
Author Organization [facility] Medical Office Building [address] Address [address] [place] [address] Care Team Providers Care Plastics Fitter Name Role Phone Nyla Hidalgo MD Primary Care Provider [phone] Allergies Active Allergy Reactions Criticality Noted Date Comments Aspirin Penicillins Venom-Honey Bee Medications SUMAtriptan (IMITREX) 100 mg tablet TAKE 1 TABLET PRN Active Active Problems Problem Noted Date Diagnosed Date Abnormal MRI 01/18/2023 Chronic migraine without aur a without status migrainosus, not intractable 01/18/2023 Threatened in first trimester 2 Urinary tract infection in female 01/31/2022 Flank pain 01/31/2022 Nausea 01/31/2022 Diarrhea 01/31/2022 H/O meniscectomy of right knee 12/24/2020 Tear of medial meniscus of right knee, initial e ncounter 11/25/2020 Overview (11/25/2020): Added automatically from request for surgery [id number] Tear of medial meniscus of right knee, current 0 11/13/2020 BMI 30.0-30.9,adult 11/13/2020 Syncope and collapse 06/17/2020 Assessment & Plan (06/17/2020 1:22 PM CDT): No further occurrence. Trigeminal neuralgia 06/04/2015 Overview (02/16/2017): Trigeminal neuralgia Pituitary neoplasm 08/10/2012 Syncope, cardiogenic Encounters Date Type Department Care Team Description 08/20/2025 Telephone [facility] Medicine [address] [facility] [address] [place] [address] Kat Davidson MA from Last 3 Months Surgical History Surgery Date Site/Laterality Comments KNEE SURGERY 12/07/2020 - 01/03/2021 Right Medical History Medical History Date Comments Hx Other Medical Headache, migra ine Asthma Migraines Smoking current UTI (urinary tract infection) 01/2022 Tobacco use Family History Medical History Relation Name Comments Diabetes Father Diabetes mellit us; Hypertension Father Hypertension; Headache Mother Headaches; Hypertension Mother Hypertension; Stroke Mother Stroke; Breast cancer Mother's Sister Relation Name Status Comments Father Mother Mother's Sister Social History Tobacco Use Types Packs/Day Years Used Date Smoking Tobacco: Every Day Cigarettes 1 18.7 Started: 05/27/2020 Smokeless Tobacco: Never Tobacco Cessation:Ready to Q uit: Not Asked; Counseling Given: Not Answered Comments:Smoking History Packs/day: 0.5 Packs Alcohol Use Standard Drinks/Week Comments No 0 (1 standard drink = 0.6 oz pur e alcohol) PHQ-2 Answer Date Recorded PHQ-2 Total Score (If total score is 3 or more points, staff should administer the PHQ-9) 0 05/15/2020 Comments No Sex and Gender Information Value Date Recorded Sex Assigned at Not on file Legal Sex Female 7:24 PM BREAD RACKER Gender Identity Female 07/23/2021 6:32 AM CDT Sexual Orientation Straight 07/23/2021 6: 32 AM CDT Obstetrics History Para Term AB IAB SAB Ectopic Multiple Livin g Live Births 1 0 0 0 0 0 0 0 0 0 0 Date Outcome GA Total Labor Labor/2nd/3rd Weight Sex Type Anes PTL Natalee A1 A5 Name Clin Last Filed Vital Signs Vital Sign Reading Time Taken Comments Blood Pressure 135/87 11/12/2024 9:44 AM BREAD RACKER Pulse 87 11/12/2024 9:44 AM BREAD RACKER Temperature 36.4 C (97.6 F) 04/22/2022 7:49 AM CDT Respiratory Rate 20 04/22/2022 7:49 AM CDT Oxygen Saturation 96% 01/16/2023 2:46 PM CDT Inhaled Oxygen Concentration - - Weight 104.3 kg (230 lb) 05/07/2025 2:03 PM CDT Height 172.7 cm (5' 8) 05/07/2025 2:03 PM CDT Body Mass Index 34.97 05/07/2025 2:03 PM CDT Plan of Treatment Health Maintenance Due Date Last Done Comments Hepatitis C Screening 1983 Varicella Vaccines (1 of 2 - 13+ 2-dose series) 1996 Hepatitis B Screening 2001 Regular Well Visit/Exam 18-64 2001 Pneumococcal vaccine <65 (1 of 2 - PCV) 2002 HPV Vaccines (1 - 3-dose SCD M series) 2010 Depression Screening 05/14/2021 05/14/2020 Covid-19 Vaccine (3 - 2024-2 6 season) 2025 09/21/2021, 08/31/2021 Influenza Vaccine (#1) 2025 Breast Cancer Screening-Mammogram 05/07/2026 05/07/2025, 03/07/2024, 12/22/2022, Additional history exists DTaP/Tdap/Td Vaccine (8 - Td or Tdap) 07/15/2031 07/15/2021, 07/04/2013, 04/28/1998, Additional history exists Procedures Procedure Name Priority Date/Time Associated Diagnosis Comments SCREENING MAMMOGRAM BILATERAL W SOREN Schedule Routine, Read Routine (OP Routine) 05/07/2025 2:10 PM CDT Screening mammogram, encounter for from Last 3 Months or Most Recently Relevant to Health Maintenance Results * Screening Mammogram Bilateral W Soren (05/07/2025 2:10 PM CDT) Anatomical Region Laterality Modality Breast Bilateral Mammography Addenda Addendum by Yanique Espinal MD on 05/08/2025 11:55 AM CDT CORRECTION TO BIRADS ASSESMENT: BIRADS 1-NEGATIVE. A BILATARAL SCREENING MAMMOGRAM IS RECOMMENDED IN 1 YEAR. Impressions 05/07/2025 4:29 PM CDT Bilateral No evidence of malignancy in either breast. OVERALL BI-RADS FINAL ASSESSMENT: 0 - Incomplete: Needs Additional Imaging Evaluation RECOMMENDATIONS: Recommend bilateral diagnostic mammogram with possible ultrasound. Narrative 05/07/2025 4:29 PM CDT EXAMINATION: Screening Mammogram Bilateral W Soren: 05/07/2025 COMPARISON: Relevent prior studies available at the time of interpretation were reviewed, including the most recent mammogram on: 03/07/2024. TECHNIQUE: Mammography was performed with 2D and digital breast tomosynthesis (DBT) images. CAD was utilized. BREAST PARENCHYMAL COMPOSITION: The breasts are heterogeneously dense, which may obscure small masses. FINDINGS: Bilateral There is no suspicious mass, calcification, or architectural distortion in either breast. us Self Screening Mammogram IMG MAMMO PROCEDURES Ed ited Result - Final from Last 3 Months or Most Recently Relevant to Health Maintenance Insurance [employer] OPEN ACCESS [facility] CIG[employer]BEW [employer] GENERIC ANTHEM ACCESS CHOICE BLUE ACC CHOICE OOS CIGNA Advance Directives For more information, please contact: [phone] * Full Code (Latest Code Status on File) Date Activated Date Inactivated Comments 05/15/2020 12:03 AM 05/15/2020 9:51 PM Care Teams Plastics Fitter Relationship Specialty Start Date End Date Nyla Hidalgo MD [address] [place] [address] PCP - General Internal Medicine 11/16/22
--- OUTSIDE RECORDS SUMMARY | 2025-08-20 17:53 | XMS_ITS | Encounter Summary ---
Author Organization [facility] Healthcare Address [address] [place] [address] Care Team Providers Care Renal Dialysis Rn Name Role Phone Nyla Hidalgo MD Primary Care Provider [phone] Encounter Details Date Type Department Care Team (Late st Contact Info) Description 08/20/2025 Telephone [facility] Medical Group Orthopedics and Sports Medicine [address] [place] [address] Kat Davidson MA Social History Tobacco Use Types Packs/Day Years Used Date Smoking Tobacco: Every Day Cigarettes 1 18.7 Started: 05/27/2020 Smokeless Tobacco: Never Comments:Smoking History Pac ks/day: 0.5 Packs Alcohol Use Standard Drinks/Week Comments No 0 (1 standard drink = 0.6 oz pur e alcohol) PHQ-2 Answer Date Recorded PHQ-2 Total Score (If total score is 3 or more points, staff should administer the PHQ-9) 0 05/15/2020 Comments No Sex and Gender Information Value Date Recorded Sex Assigned at Not on file Legal Sex Female 7:24 PM EMERGENCY MEDICAL TECHNICIAN Gender Identity Female 07/23/2021 6:32 AM CDT Sexual Orientation Straight 07/23/2021 6: 32 AM CDT documented as of this encounter Miscellaneous Notes * Telephone Encounter - Kat Davidson MA - 08/20/2025 10:37 AM CDT Patient calling for medical records. States she was seen in November and needs records for a doctor appointment today. Please call patient at [phone] documented in this encounter Plan of Treatment Not on file documented as of this encounter Visit Diagnoses Not on filedocumented in this encounter Care Teams Renal Dialysis Rn Relationship Specialty Start Date End Date Nyla Hidalgo MD [address] [place] [address] PCP - General Internal Medicine 11/16/22 documented as of this encounter
--- OUTSIDE RECORDS SUMMARY | 2025-08-20 17:53 | XMS_ITS | Encounter Summary ---
Author Organization [facility] Address [address] [place] [address] Phone Care Team Providers Care Intranet Specialist Name Role Phone Gilmer Garibay MD Primary Care Provider [phone] Encounter Details Date Type Department Care Team (Late st Contact Info) Description 09/10/2020 Transcribe Orders [facility] Scheduling [address] [place] [id number] Gilmer Garibay MD [address] [place] [address] Social History Tobacco Use Types Packs/Day Years Used Date Smoking Tobacco: Never Assessed Comments Unknown Sex and Gender Information Value Date Recorded Sex Assigned at Not on file Legal Sex Female 12:46 PM CDT Gender Identity Not on file Sexual Orientation Not on file COVID-19 Exposure Response Date Recorded In the last month, have you been in contact with someone who was confirmed or suspected to have Coronavirus / COVID-19? No / Unsure 09/10/2020 12:56 PM SENIOR COGNOS DEVELOPER documented as of this encounter Plan of Treatment Not on file documented as of this encounter Visit Diagnoses Not on filedocumented in this encounter Care Teams Intranet Specialist Relationship Specialty Start Date End Date Gilmer Garibay MD [address] [place], [place] [id number] PCP - General Internal Medicine 06/23/20 documented as of this encounter
--- OUTSIDE RECORDS SUMMARY | 2025-08-20 17:53 | XMS_ITS | Clinical Summary ---
Author Organization [facility] Address [address] [facility] [place] [address] Care Team Providers Care Plant Pathologist Name Role Phone Gilmer Garibay MD Primary Care Provider [phone] Source Comments [facility],non-owned Affiliates and Associated Physician Practices is amultiple site organization consisting of ambulatory clinics and hospital sitesin [place], [place], [place] and [place]. This disclosure is being madepursuant to the Care Everywhere program and may not contain all information available regarding this patient. Last updated 18.[facility] Social History Tobacco Use Types Packs/Day Years Used Date Smoking Tobacco: Never Assessed Comments Unknown Sex and Gender Information Value Date Recorded Sex Assigned at Not on file Legal Sex Female 1:03 PM CDT Gender Identity Not on file Sexual Orientation Not on file Plan of Treatment Health Maintenance Due Date Last Done Comments LIPID TESTING 1985 MAMMOGRAM 1985 HIV SCREENING 1998 HEPATITIS C SCREENING 12/20/2001 DTAP/TDAP/TD VACCINES (1 - Tdap) 2002 HEPATITIS B VACCINE (1 of 3 - 19+ 3-dose series) 2002 PAP SMEAR 2004 HPV VACCINE (1 - 3-dose SCDM series) 2010 DEPRESSION SCREENING 11/06/2024 COVID-19 VACCINE (3 - 2024-2 6 season) 2025 09/21/2021, 08/31/2021 INFLUENZA VACCINE (#1) 2025 ZOSTER VACCINE (1 of 2) 2033 HIB VACCINE Aged Out No longer eligi ble based on patient's age to complete this topic MENINGOCOCCAL (Group B) VACCINE SHARED DECISION-MAKING Aged Out No longer eligible based on patient's age to complete this topic MENINGOCOCCAL GROUPS A/C/Y/W VACCINE Aged Out No longer eligible b ased on patient's age to complete this topic PNEUMOCOCCAL VACCINE Aged Out No long er eligible based on patient's age to complete this topic Insurance [employer] [facility] Address: [facility] [id number] [place] [address] CIGNA SELF PAY NO INSURANCE Member Subscriber Plan / Payer (Ef fective for All Dates) Name:Shi De Anda Member ID:Not on file Relation to Subscriber:Not on file Name:SHI DE ANDA Subscriber ID:Not on file Address: [address] [place] [address] Payer ID:Not on file Group ID:Not on file Type:Self Pay Address: [place], [place] [employer] [facility] Address: [facility] [address] [place] [address] CIGNA SELF PAY NO INSURANCE Member Subscriber Plan / Payer (Ef fective for All Dates) Name:Shi De Anda Member ID:Not on file Relation to Subscriber:Not on file Name:SHI DE ANDA Subscriber ID:Not on file Address: [address] [place] [place] [id number] Payer ID:Not on file Group ID:Not on file Type:Self Pay Address: [place], [place] CIGNA SELF PAY NO INSURANCE Member Subscriber Plan / Payer (Ef fective for All Dates) Name:Shi De Anda Member ID:Not on file Relation to Subscriber:Not on file Name:SHI DE ANDA Subscriber ID:Not on file Address: [address] [place] [address] Payer ID:Not on file Group ID:Not on file Type:Self Pay Address: [place], [place] Care Teams Plant Pathologist Relationship Specialty Start Date End Date Gilmer Garibay MD [address] [place] [address] PCP - General 05/11/22
== END 2025-08-20 16:52 | disposition home or self-care (01) ==
LOC: CHSIMG 16:55
PROVIDERS: PCP Internal Medicine
DX: M25.561 Pain in right knee (principal)
CPT/HCPCS: 73562

== ENCOUNTER 2025-10-17 16:12 | Outpatient (CLI) | payer OTHER, SELFPAY ==
--- NOTE | ~2025-10-17 | XR_ITS ---
EXAM/PROCEDURE: XR abdomen/kub 1V HISTORY: Lt. kidney stone x4 days COMPARISON: None available. TECHNIQUE: KUB FINDINGS: Moderate to large amount of stool present overlying the abdomen. No large radiopaque kidney stones seen. Bones appear intact. Lung bases clear. IMPRESSION: No large kidney stones seen. Exam somewhat limited as above due to overlying stool and bowel gas. Reviewed, dictated and finalized at location A. TIONAL NURSE LVN IMPRESSION: No large kidney stones seen. Exam somewhat limited as above due to overlying st ool and bowel gas.
--- OUTSIDE RECORDS SUMMARY | 2025-10-17 16:17 | XMS_ITS | Clinical Summary ---
Author Organization [facility] Address [address] [facility] [place] [address] Care Team Providers Care Research And Insights Executive Name Role Phone Gilmer Garibay MD Primary Care Provider Source Comments [facility],non-owned Affiliates and Associated Physician Practices is amultiple site organization consisting of ambulatory clinics and hospital sitesin [place], [place], [place] and [place]. This disclosure is being madepursuant to the Care Everywhere program and may not contain all information available regarding this patient. Last updated 18.[facility] Social History Tobacco Use Types Packs/Day Years [...] age to complete this topic Insurance CIGNA CIGNA SELF PAY NO INSURANCE Member Subscriber Plan / Payer (Ef fective for All Dates) Name:Shi De Anda Member ID:Not on file Relation to Subscriber:Not on file Name:SHI DE ANDA Subscriber ID:Not on file Address: [address] [place] [address] Payer ID:Not on file Group ID:Not on file Type:Self Pay Address: [place], [place] CIGNA CIGNA SELF PAY NO INSURANCE Member Subscriber Plan / Payer (Ef fective for All Dates) Name:Shi De Anda Member ID:Not on file Relation to Subscriber:Not on file Name:SHI DE ANDA Subscriber ID:Not on file Address: [address] [place] [place] [id number] Payer ID:Not on file Group ID:Not on file Type:Self Pay Address: [place], [place] CIGNA SELF PAY NO INSURANCE Member Subscriber Plan / Payer (Ef fective for All Dates) Name:Shi De Anda Member ID:Not on file Relation to Subscriber:Not on file Name:SHI DE ANDA Subscriber ID:Not on file Address: [address] [place] [address] Payer ID:Not on file Group ID:Not on file Type:Self Pay Address: [place], [place] Care Teams Research And Insights Executive Relationship Specialty Start Date End Date Gilmer Garibay MD [address] [place] [address] PCP - General 05/11/22
--- OUTSIDE RECORDS SUMMARY | 2025-10-17 16:17 | XMS_ITS | Clinical Summary ---
Author Organization [facility] Address [address] [place] [address] Phone Care Team Providers Care Ammonia Box Tender Name Role Phone Gilmer Garibay MD Primary Care Provider [phone] Social History Tobacco Use Types Packs/Day Years Used Date Smoking Tobacco: Never Assessed Comments Unknown Sex and Gender Information Value Date Recorded Sex Assigned at Not on file Legal Sex Female 12:46 PM CDT Gender Identity Not on file Sexual Orientation Not on file Plan of Treatment Health Maintenance Due Date Last Done Comments Hepatitis C Virus (HCV) Screening 1983 Varicella Immunization (1 of 2 - 13+ 2-dose series) 1996 Hepatitis B Immunization (1 of 3 - 19+ 3-dose series) 2002 Pap Smear 2004 Cervical Cancer Screening (CCS) 2013 HPV/Cotest 2013 Influenza Immunization (#1) 2025 SARS-COV-2 Immunization ( season) 2025 09/21/2021, 08/31/2021 Respiratory Syncytial Virus (RSV) Immunization (Adult) (1 - 1-dose 75+ series) 2058 DTaP/Tdap/Td Immunization Discontinued 2012, 04/28/1998, 06/19/1989, Additional history exists TdaP Immunization Completed 07/04/2013 Human Papillomavirus (HPV) Immunization (No Doses Required) Completed Meningococcal Immunization (ACWY) Aged Out No longer eligible based on patient's age to complete this topic Pneumococcal Immunization Combined Aged Out No longer eligible based on patient's age to complete this topic Rotavirus Immunization Aged Out No lo nger eligible based on patient's age to complete this topic Care Teams Ammonia Box Tender Relationship Specialty Start Date End Date Gilmer Garibay MD [address] [place] [id number] PCP - General Internal Medicine 06/23/20
--- OUTSIDE RECORDS SUMMARY | 2025-10-17 16:18 | XMS_ITS ---
Author Organization Unknown Address [address] [place] [phone] Phone Care Team Providers Care Hydrometer Tester Name Role Phone KLEVER Mast Attending Unavailable NO PCP Primary Unavailable Results CBC W/ DIFF - Collect Date/T minerva: 10/14/2025 11:00 [facility] ID: [id number] [address] [place] [address], [id number] LOINC: 67786-3 Test Value Unit Reference Range Code Code System Flag WBC 9.5 10^3uL L=4.0 H=10.5 RBC 4.33 10^6uL L=4.20 H=5.40 HEMOGLOBIN 12.7 g/dL L=12.0 H=16.0 718-7 LOINC HEMATOCRIT 38.5 VOL% L=37.0 H=47.0 4544-3 LOINC MCV 88.9 fL L=81.0 H=99.0 MCH 29.3 pg L=27.0 H=32.0 MCHC 33.0 g/dL L=32.0 H=36.0 PLATELETS 222 10^3uL L=100 H=400 87687-3 LOINC RDW 13.0 % L=11.7 H=15.5 %GRAN 72.3 % L=40.0 H=70.0 33703-3 LOINC H %LYMPH 18.3 % L=20.0 H=45.0 736-9 LOINC L %MONO 8.0 % L=2.0 H=10.0 58271-0 LOINC %EOS 0.7 % L=0.0 H=6.0 713-8 LOINC %BASO 0.4 % L=0.0 H=3.0 706-2 LOINC #NEUT 6.9 10^3uL L=1.9 H=7.6 84797-5 LOINC #LYMPH 1.7 10^3uL L=0.9 H=4.9 03352-9 LOINC #MONO 0.8 10^3uL L=0.1 H=0.9 89026-7 LOINC #EOS 0.1 10^3uL L=0.0 H=0.6 712-0 LOINC #BASO 0.04 10^3uL L=0.00 H=0.10 77902-7 LOINC #IM GRANS 0.0 10^3uL L=0.0 H=7.0 76165-7 LOINC %IM GRANS 0.3 % L=0.0 H=5.0 28357-3 LOINC %NRB 0.0 L=0.0 H=0.2 75511-8 LOINC #NRB 0.000 L=0.000 H=0.012 86297-6 LOINC MANUAL DIFF NOT INDICATED RBC MORPH NOT INDICATED COMPREHENSIVE METABOLIC PANE L - Collect Date/Time: 10/14/2025 11:00 [facility] ID: [id number] [address] [place], [place], [id number] LOINC: 57110-2 Test Value Unit Reference Range Code Code System Flag FASTING UNKNOWN BUN 15 mg/dL L=7 H=20 3094-0 LOINC CREATININE 0.90 mg/dL L=0.52 H=1.04 2160-0 LOINC AGE 39 10541-7 LOINC eGFR 82 GLUCOSE 88 mg/dL L=74 H=106 2345-7 LOINC SODIUM 137 mmol/L L=132 H=144 2951-2 LOINC POTASSIUM 4.0 mmol/L L=3.5 H=5.1 2823-3 LOINC CHLORIDE 104 mmol/L L=98 H=107 2075-0 LOINC CO2 24.0 mmol/L L=22.0 H=30.0 8-9 LOINC ANION GAP 13 L=10 H=20 04932-3 LOINC OSMOLALITY 284 mOs/kG L=280 H=296 54242-8 LOINC BUN/CREAT 16.7 3097-3 LOINC CALCIUM 8.9 mg/dL L=8.3 H=10.5 68795-8 LOINC AST 23 U/L L=15 H=46 1920-8 LOINC ALT 19 U/L L=9 H=72 1742-6 LOINC ALKALINE PHOS 74 U/L L=38 H=126 6768-6 LOINC TOTAL BILI 0.3 mg/dL L=0.2 H=1.3 1975-2 LOINC ALBUMIN 4.3 G/dL L=3.5 H=5.0 1751-7 LOINC TOTAL PROTEIN 7.0 g/L L=6.3 H=8.2 2885-2 LOINC A/G RATIO 1.6 02811-7 LOINC URINALYSIS w/Microscopy/C&S if indicated - Collect Date/Time: 10/14/2025 10:27 [facility] ID: [id number] [address] [place], [place], [id number] LOINC: 31712-8 Test Value Unit Reference Range Code Code System Flag UR SOURCE VOIDED 13098-7 LOINC COLOR YELLOW YELLOW 5778-6 LOINC CLARITY SL CLOUDY CLEAR 98670-5 LOINC SPEC GRAVITY 1.020 1.000-1.030 5811-5 LOINC PH 5.5 5.0 - 6.5 5803-2 LOINC LEUK EST NEGATIVE NEGATIVE 5799-2 LOINC NITRATE NEGATIVE NEGATIVE PROTEIN NEGATIVE NEGATIVE 5804-0 LOINC GLUCOSE NEGATIVE NEGATIVE 21227-9 LOINC KETONES NEGATIVE NEGATIVE 10812-3 LOINC UROBILINOGEN 1.0 0.2 - 1.0 5818-0 LOINC BILIRUBIN NEGATIVE NEGATIVE 89505-3 LOINC BLOOD 3+ NEGATIVE 02019-2 LOINC A MICROSCOPIC? SEE BELOW 67812-9 LOINC WBC 2-5 0 - 2 69502-0 LOINC RBC 30-50 0 - 2 69559-6 LOINC A SQ EPITHELIAL MANY RARE-FEW A BACTERIA 1+ NONE SEEN 16712-4 LOINC MUCUS 1+ NONE SEEN 8247-9 LOINC YEAST NOT PRESENT NOT PRESENT 57598-6 LOINC TRICHOMONAS NOT PRESENT NOT PRESENT 94129-6 LOINC SPERMATOZOA NOT PRESENT NOT PRESENT 78069-0 LOINC CASTS NOT PRESENT 41562-6 LOINC CRYSTALS NOT PRESENT 24138-2 LOINC CULTURE? NO 8251-1 LOINC DIAGNOSIS REJECTED TEST URINE - Colle ct Date/Time: 10/14/2025 10:27 [facility] ID: [id number] [address] [place] [address], [id number] LOINC: Test Value Unit Reference Range Code Code System Flag URINE PREG NEGATIVE CT ABD/PEL WO CONTRAST - Com pleted: 10/14/2025 10:52 LOINC: 11651-6 \TM00\\12PI\\DRAo\\BM09\ \MRHo\ [address] [address] ---------NAME--------- NUMBER SEX AGE ADMIT DISC. XRAY# F/C TYPE ISHA SHI CULP [id number] F 39 10/14/25 73357 CBE E.R. DATE OF : 1985 M/R# [id number] PH#: [id number] \MRHx\ LOCATION: TRANSCRIBED: 10/14/25 11:04 CT ABD/PEL WO CONTRAST [id number] COMPLETED:10/14/25 10:52 TLS [id number] Flank Pain PHYSICIAN: KLEVER PHI R A D I O L O G Y R E P O R T EXAM: CT ABD/PEL WO CONTRAST HISTORY: Flank Pain COMPARISON: None TECHNIQUE: Helical CT images of the abdomen and pelvis were performed without contrast. Sagittal and coronal reformatted images were obtained. This CT exam was performed using one or more of the following dose reduction techniques: Automated exposure control, adjustment of the mA and/or kV according to patient size, or use of iterative reconstruction technique. Radiation Dose: CT Abdomen/Pelvis: CTDIvol 34.05 mGy, DLP 1683.1 mGy*cm. FINDINGS: Urinary tract: There is a left distal ureteral 4 mm calculus (image 131, series 2) with associated mild left hydronephrosis and hydroureter. There is a left renal inferior pole 6 mm nonobstructing calculus. No right renal or ureteral calculi, hydronephrosis, or hydroureter. No urinary bladder calculi. The urinary bladder is decompressed. Miscellaneous: The heart is not enlarged. The lung bases are clear. There are multiple gas density gallstones in the gallbladder. The noncontrast liver, spleen, pancreas, and adrenal glands are unremarkable. No abdominal aortic aneurysm. No abnormal bowel dilatation, free air, or free fluid. The uterus is surgically absent. The appendix is not dilated and does not appear inflamed. There is spina bifida occulta S1. There is advanced degenerative disc disease L5-S1 with significant neural foraminal stenosis bilaterally at that level. IMPRESSION: 1. Mild left hydronephrosis and hydroureter secondary to a distal ureteral 4 mm calculus. There is also a 6 mm nonobstructing left renal inferior pole calculus. 2. Cholelithiasis. 3. Postoperative changes of hysterectomy. 4. Advanced degenerative disc disease L5-S1 with significant neural foraminal stenosis bilaterally at that level. These findings may correspond to bilateral lower extremity radicular symptoms in the L5 nerve root distributions. 5. No evidence of bowel obstruction, acute appendicitis, or other acute process in the abdomen or pelvis. OUT MANAGER \ITLo\ \UNDo\ \UNDx\ \ITLx\ Reviewed and Electronically Signed by: Jethro Vazquez MD Signed Date: 10/14/25 11:04 Social History Type Status Start Date End Date Code Code Syst em Sex Female Hospital Discharge Instructions Should you have any questions prior to discharge, please contact a member of your healthcare team. If you have left the hospital and have any questions, please contact your primary care physician. Reason For Referral No Data Found Plan of Treatment No Data Found Personal Care Team Section Imaging Narrative Notes [facility] 10/14/2025 11:07 [facility] [address] [place] [address] ---------NAME--------- NUMBER SEX AGE ADMIT DISC. XRAY# F/C TYPE ISHA CULP [id number] F [id number] 10/14/25 [id number] CBE ERodolfoRRodolfo DATE OF : 1985 M/R# [id number] PH#: [id number] LOCATION: TRANSCRIBED: 10/14/25 11:04 CT ABD/PEL WO CONTRAST [id number] COMPLETED:10/14/25 10:52 TLS [id number] Flank Pain PHYSICIAN: KLEVER PHI RADIOLOGY REPORT EXAM: CT ABD/PEL WO CONTRAST HISTORY: Flank Pain COMPARISON: None TECHNIQUE: Helical CT images of the abdomen and pelvis were performed without contrast. Sagittal and coronal reformatted images were obtained. This CT exam was performed using one or more of the following dose reduction techniques: Automated exposure control, adjustment of the mA and/or kV according to patient size, or use of iterative reconstruction technique. Radiation Dose: CT Abdomen/Pelvis: CTDIvol 34.05 mGy, DLP 1683.1 mGy*cm. FINDINGS: Urinary tract: There is a left distal ureteral 4 mm calculus (image 131, series 2) with associated mild left hydronephrosis and hydroureter. There is a left renal inferior pole 6 mm nonobstructing calculus. No right renal or ureteral calculi, hydronephrosis, or hydroureter. No urinary bladder calculi. The urinary bladder is decompressed. Miscellaneous: The heart is not enlarged. The lung bases are clear. There are multiple gas density gallstones in the gallbladder. The noncontrast liver, spleen, pancreas, and adrenal glands are unremarkable. No abdominal aortic aneurysm. No abnormal bowel dilatation, free air, or free fluid. The uterus is surgically absent. The appendix is not dilated and does not appear inflamed. There is spina bifida occulta S1. There is advanced degenerative disc disease L5-S1 with significant neural foraminal stenosis bilaterally at that level. IMPRESSION: 1. Mild left hydronephrosis and hydroureter secondary to a distal ureteral 4 mm calculus. There is also a 6 mm nonobstructing left renal inferior pole calculus. 2. Cholelithiasis. 3. Postoperative changes of hysterectomy. 4. Advanced degenerative disc disease L5-S1 with significant neural foraminal stenosis bilaterally at that level. These findings may correspond to bilateral lower extremity radicular symptoms in the L5 nerve root distributions. 5. No evidence of bowel obstruction, acute appendicitis, or other acute process in the abdomen or pelvis. OUT MANAGER Reviewed and Electronically Signed by: Jethro Vazquez MD Signed Date: 10/14/25 11:04
--- OUTSIDE RECORDS SUMMARY | 2025-10-17 16:18 | XMS_ITS | Clinical Summary ---
Author Organization [facility] Address [address] [place] [address] Care Team Providers Care Defense Travel Administrator Name Role Phone Nyla Hidalgo MD Primary Care Provider [phone] Allergies Active Allergy Reactions Criticality Noted Date [...] (11/25/2020): Added automatically from request for surgery [id number] Tear of medial meniscus of right knee, current 0 11/13/2020 BMI 30.0-30.9,adult 11/13/2020 Syncope and collapse 06/17/2020 Assessment & Plan (06/17/2020 1:22 PM CDT): No further occurrence. Trigeminal neuralgia 06/04/2015 Overview (02/16/2017): Trigeminal neuralgia Pituitary neoplasm 08/10/2012 Syncope, cardiogenic Encounters Date Type Department Care Team Description 08/20/2025 Telephone [facility] Orthopedics and Sports Medicine [address] [facility] [address] [place] [address] Kat Davidson MA from Last [...] Date Smoking Tobacco: Every Day Cigarettes 1 18.9 Started: 05/27/2020 Smokeless Tobacco: Never Tobacco Cessation:Ready [...] on file Legal Sex Female 7:24 PM SALES DEPARTMENT CLERK Gender Identity Female 07/23/2021 6:32 AM CDT [...] Comments Blood Pressure 135/87 11/12/2024 9:44 AM SALES DEPARTMENT CLERK Pulse 87 11/12/2024 9:44 AM SALES DEPARTMENT CLERK Temperature 36.4 C (97.6 F) 04/22/2022 7:49 [...] Most Recently Relevant to Health Maintenance Insurance [employer] OPEN ACCESS [facility] CIGNA [employer] ACCESS CHOICE BLUE ACC CHOICE OOS CIGNA Advance Directives For more information, please contact: [phone] * Full Code (Latest Code Status on File) Date Activated Date Inactivated Comments 05/15/2020 12:03 AM 05/15/2020 9:51 PM Care Teams Defense Travel Administrator Relationship Specialty Start Date End Date Nyla Hidalgo MD [address] [place] [address] PCP - General Internal Medicine 11/16/22
[2025-10-17 16:30] LABS: Hematocrit 36.4 % (35.0-49.0); Hemoglobin 12.1 g/dL (12.0-15.0); Mean Corpuscular HGB Conc 33.2 g/dL (32-36); Mean Corpuscular Hemoglobin 29.6 pg (27.0-31.0); Mean Corpuscular Volume 89.0 fL (78.0-102.0); Platelet Count Result 221 K/mm3 (150-420); Red Blood Count 4.09 M/mm3 (4.20-5.40); White Blood Count 9.8 K/mm3 (4.8-10.8)
[2025-10-17 16:31] LABS: Add Urine Microscopic? NO; Appearance Urine Clear (Clear); Glucose Urine UA Negative (Negative); Leukocyte Esterase Ur Negative (Negative); Nitrate Urine Negative (Negative); Specific Grav Ur 1.020 (1.010-1.020)
[2025-10-17 16:41] LABS: Anion Gap 8 mmol/L (4-12); Blood Urea Nitrogen 16 mg/dL (7-17); Calcium 9.2 mg/dL (8.4-10.2); Carbon Dioxide 26 mmol/L (22-30); Chloride 106 mmol/L (98-107); Estimated Glomerular Filt Rate 53; Glucose 81 mg/dL (65-110); Osmolality Calculated 290 mOsm/kg (285-295); Potassium 4.1 mmol/L (3.4-5.0); Sodium 140 mmol/L (137-145)
== END 2025-10-17 16:13 | disposition home or self-care (01) ==
LOC: CHSLAB 16:15
PROVIDERS: PCP Nurse Practitioner Family; Visit Provider Nurse Practitioner Family
DX: N20.0 Calculus of kidney (principal)
CPT/HCPCS: 36415; 74018; 80048; 81003; 85027; 87086